=== PATIENT | female | born 1975 | race Hispanic/Latino ===

== ENCOUNTER 2020-06-15 10:49 | Outpatient (CLI) | payer OTHER, SELFPAY ==
[2020-06-15 11:43] LABS: Alanine Aminotransferase 18 U/L (4-35); Alkaline Phosphatase 69 U/L (38-126); Amylase 107 U/L (30-110); Aspartate Amino Transferase 35 U/L (14-36); Bilirubin,Total 0.5 mg/dL (0.2-1.3); Lipase 137 U/L (23-300)
== END 2020-06-15 10:50 | disposition home or self-care (01) ==
LOC: ANHSURGERY 10:51
PROVIDERS: Visit Provider Surgery
DX: K80.20 Calculus of gallbladder without cholecystitis without obstruction (principal); Z01.812 Encounter for preprocedural laboratory examination
CPT/HCPCS: 36415; 80076; 82150; 83690; 86850; 86900; 86901

== ENCOUNTER 2020-06-26 00:04 | Outpatient (CLI) | payer OTHER, SELFPAY ==
[2020-06-26 20:43] LABS: SARS-CoV-2 RNA PCR Negative
== END 2020-06-26 00:05 | disposition home or self-care (01) ==
LOC: ANHCOVIDDT 00:04
PROVIDERS: Visit Provider Surgery
DX: Z01.812 Encounter for preprocedural laboratory examination (principal); Z11.59 Encounter for screening for other viral diseases
CPT/HCPCS: 87635; C9803; U0003

== ENCOUNTER 2020-06-29 00:35 | Day surgery (SDC) | payer OTHER, SELFPAY ==
[2020-06-11 10:55] VITALS: BMI 20.6
[2020-06-29] VITALS (9 sets, daily range): BP systolic 105–119; BP diastolic 54–75; PULSE 53–96; RESP 12–20; TEMP 36.8; O2SAT 99–100
[2020-06-29] MEDS: LACTATED RINGERS 1,000 ML 30 ML IV CONT ×2 (10:30→13:35)
--- NOTE | 2020-06-29 10:34 | WPDANESEPPF ---
Anes - Initial Pre Proc Eval Procedure: Operation Date: 06/29/20 12:00 Proposed Procedures p Laparoscopic Cholecystectomy - Albino Holloway DO Date/Time: 06/29/20 10:34 Surgeon: Albino Holloway DO Pre Op Diagnosis: Cholelithiasis Patient Data Age: 44 Gender: F Height: 5 ft 4 in Weight: 54.5 kg Allergies Allergy/AdvReac Type Severity Reaction Status Date / Time No Known Allergies Allergy Verified 12/20/19 08:56 Home Medications Medication Instructions Recorded Confirmed Type terbinafine HCl 250 mg PO DAILY 06/11/20 06/11/20 History Patient hx anesthesia problems: none Family hx anesthesia problems: none [facility] Social History Social History Smoking status: Light tobacco smoker Tobacco type: cigarettes Additional smoking assessment comments: <20 YEAR SMOKER A COUPLE CIGARETTES A DAY QUIT IN 2018 Alcohol intake: current Alcohol use details: 2-3 DRINKS DAILY Substance use: never Living arrangements: with family Spiritual care concerns: No Anes - Eval Final PreProcedure Day of Procedure 06/29/20 10:34 Patient weight: normal Heart: regular rate and rhythm Lungs: clear to auscultation Airway: Mallampati scale class II Neurological: alert and oriented Last oral intake: >/= 8 hours ASA classification: II Emergent: no Anesthetic plan: proceed Anesthesia type and monitoring: general ETT and standard monitoring Informed Consent: The patient's anesthetic plan and its attendant risks and benefits were discussed with the patient/family/POA. Questions were solicited and answers provided to the satisfaction of the patient/family/POA.
[2020-06-29] MEDS: KETOROLAC 15 MG/ML VIAL (*BKC) IV PUSH (11:00)
--- NOTE | 2020-06-29 11:09 | PM.IMHP ---
H&P: HPI History of Present Illness Date/Time: 06/29/20 11:09 Chief complaint: Cholelithiasis Narrative: Danielle Winn is a 44 year old female who presents for lap merlin. She had a severe attack of pain in October 2019 and went to the ED. Workup showed evidence of cholecystitis. She has not had severe attacks like that since. Review of Systems Review of Systems: All systems reviewed & are unremarkable except as noted in HPI and below Constitutional: Constitutional: Denies chills, Denies fever(s), Denies headache(s) and Denies weight loss Eyes: Eyes: Denies change in vision ENT: Denies dizziness, Denies headache(s), Denies neck mass and Denies throat swelling Cardiovascular: Cardiovascular: Denies chest pain, Denies lightheadedness and Denies dyspnea Respiratory: Respiratory: Denies cough, Denies dyspnea and Denies wheezing Gastrointestinal: Gastrointestinal: Denies abdominal pain, Denies change in bowel habits, Denies nausea and Denies vomiting Genitourinary: Genitourinary: Denies hematuria and Denies dysuria Musculoskeletal: Musculoskeletal: Reports as per HPI Integumentary/Breasts: Skin/Breast: Reports as per HPI Neurologic: Denies dizziness and Denies headache(s) Allergic/Immunologic: Allergic/Immunologic: Denies throat swelling and Denies wheezing PMFSH Past Medical History Medical History Hyperthyroidism Surgical History Surgical History History of dilatation and curettage Family History Family History Mother Rheumatoid arthritis Social History Social History Smoking status: Light tobacco smoker Tobacco type: cigarettes Additional smoking assessment comments: <20 YEAR SMOKER A COUPLE CIGARETTES A DAY QUIT IN 2018 Alcohol intake: current Alcohol use details: 2-3 DRINKS DAILY Substance use: never Living arrangements: with family Spiritual care concerns: No Meds Home Medications and Allergies Home Medications Medication Instructions Recorded Confirmed Type terbinafine HCl 250 mg PO DAILY 06/11/20 06/29/20 History Allergies Allergy/AdvReac Type Severity Reaction Status Date / Time No Known Allergies Allergy Verified 06/29/20 10:52 Vital Signs Vital Signs - 24 hr 06/29/20 10:54 Temperature 36.8 C Pulse Rate 78 Respiratory Rate 16 Blood Pressure 117/65 Pulse Oximetry 100 Exam Const: General: no acute distress and alert Orientation/consciousness: patient oriented x3 HENMT: Head: normocephalic and atraumatic Ears: hearing grossly normal bilaterally General nose exam: Normal nares present Mouth: Yes Normal oral and palatal mucosa present Eyes: Periorbital: periorbital findings normal Sclera: sclerae normal EOM: EOMs intact bilaterally Neck: Neck: normal visual inspection, no lymphadenopathy and trachea midline Chest: Chest palpation & inspection: normal inspection of the chest Resp: Effort & Inspection: normal respiratory effort Auscultation: clear to auscultation bilaterally Cardio: Jugular venous distension: no JVD Rate: regular rate Rhythm: regular rhythm Heart sounds: S1 normal heart sound present and S2 normal heart sound present Peripheral pulses: Peripheral pulses 2+ throughout GI: Inspection: normal to inspection GI Palp: Yes Soft to palpation, No Tenderness to palpation present (GI), No Guarding due to palpation present (GI) and No Rebound tenderness present Percussion: Yes normal to percussion Auscultation: normal bowel sounds : General: Yes no CVA tenderness Back/Spine/Pelvis: Back: no CVA tenderness Neuro: General: patient oriented x3, no focal motor deficits and CN's II-XI intact bilaterally Cognition (Neuro): normal cognition Speech: normal speech Motor exam (neuro): 5/5 motor strength p
[2020-06-29] MEDS: ceFAZolin 2 GM/D5W 50 ML 2 GM/50 ML BAG IVPB (12:22)
[2020-06-29] MEDS: BUPIVACAINE/EPINEPHRINE 0.5% 10 ML VIAL 30 ML INFILTRATE (12:54)
[2020-06-29] MEDS: diphenhydrAMINE HCl INJ 50 MG/ML VIAL 12.5 MG IV PUSH (13:33)
--- NOTE | 2020-06-29 13:34 | PM.PROC ---
Procedure Note - Detailed Date of procedure: 06/29/20 Pre-op diagnosis: Cholelithiasis Post-op diagnosis: same Procedure performed: Laparoscopic Cholecystectomy Description of procedure: Procedure as well as risks, benefits, and alternatives were discussed with patient. Written consent was obtained and placed in chart prior to procedure. The patient was brought back to surgical suite. Patient was placed in supine position on operating table. Time-out was done to confirm patient and procedure. Patient was then intubated by the anesthesia department. Abdomen was prepped and draped in sterile fashion using chlorhexidine prep. 0.5% bupivacaine with epinephrine was infiltrated at each site of incision. An 11 millimeter vertical incision was made at the inferior portion of the umbilicus using a 15 blade scalpel. Blunt dissection was carried down to the linea alba. The linea alba was then incised using a 15 blade scalpel. The peritoneum was then bluntly entered. An 11 millimeter trocar was inserted and cabon dioxied insuflation was used to create a pneumoperitoneum. The camera was inserted and the abdomen was inspected. The patient was placed in reverse Trendelenberg position and rotated slightly to the left. A 5 millimeter incision was made in the epigastric region, and a 5 millimeter trocar was inserted under direct visualization. Two 5 millimeter incisions were made in the right upper quadrant, and two 5 millimeter trocars were inserted under direct visualization. The gallbladder was identified and grasped at the fundus and retracted superiorly. It was then grasped at the infundibulum retracted laterally. Careful dissection around the neck of the gallbladder was performed using blunt dissection with a [place] grasper and hook electrocautery. The cystic duct was identified, and a window was created behind it. The cystic artery was also identified and a window was created behind it. The critical view of safety was identified, visualizing the cystic duct running directly into the neck of the gallbladder, and the cystic artery running directly into the wall of the gallbladder. A 5 millimeter clip electronics assembler was then used to place 2 clips proximally and 1 clip distally on both the cystic duct and cystic artery. They were then both transected using endoscopic scissors. Once safely away from the loly hepatitis, the gallbladder was dissected free from the liver bed using hook electrocautery. Hemostasis was achieved along the way. The gallbladder was removed completely and then removed through the umbilical port. The liver bed was then inspected. Hemostasis appeared adequate, and our clips appeared secure. The area was gently irrigated with sterile saline. No other abnormalities were seen. The patient was flattened out in bed, and 1 final inspection was made around the abdominal cavity. The ports were then removed under direct visualization, the camera was removed, and the pneumoperitoneum was released. The fascia of the umbilical incision was approximated using an 0 Vicryl [id number] suture. The skin of the incisions was approximated using 4-0 Monocryl subcuticular sutures. Exofin glue was applied on top. The patient was then awakened from anesthesia, extubated, and transferred to recovery. Anesthesia: GETA and local (0.5% bupivicaine with epinephrine) Surgeon: Albino Holloway DO Estimated blood loss (mL): 5 Complications: No immediate complications Condition: stable Disposition: same day Findings: Danielle presents with epigastric pain and gallstones. She reports she has had two episodes of the pain. She went to [facility] on 11-18-19 with complaints of epigastric ABD pain that radiates to her back with nausea and vomiting. A Ct scan was performed which showed suggestion of a recently passed common bile duct stone, cystic duct stone and multiple stones in the dependent gallbladder. She reports she had a episode on 11-21-19 but none since.Discussions w
== END 2020-06-29 15:30 | disposition home or self-care (01) ==
PROVIDERS: Visit Provider Surgery
PROC: 0FT44ZZ Resection of Gallbladder, Percutaneous Endoscopic Approach (ICD-10-PCS; CPT 47562; principal; 2020-06-29 12:00)
DX: K80.10 Calculus of gallbladder with chronic cholecystitis without obstruction (principal); Z87.891 Personal history of nicotine dependence
CPT/HCPCS: 47562; 87635; 88304; J0690; J1100; J1200; J1885; J2250; J2405; J2704; J2710; J3010; J7030; J7120; U0003